=== PATIENT | female | born 1955 | race African-American/Black ===

== ENCOUNTER 2017-01-02 18:08 | Inpatient (IN) | payer OTHER ==
[~2017-01-02] VITALS: Ht 167.6 cm; Wt 90.7 kg
--- NOTE | ~2017-01-02 | HC ---
[facility] [place] [address] CONSULTATION Name: OKSANA WASHBURN Room #: 418-P ADM IN M.R.#: [id number] Admission: 01/02/17 Attend Phys: Martell Silvestre DO Discharge: Date of : 51 Report #: [id number] THIS REPORT FOR: //name// CC: [facility] physician/PCP Martell Avina DATE OF SERVICE: 01/03/2017 REFERRING PROVIDER: Martell Silvestre DO REASON FOR CONSULTATION: Diverticulitis with abscesses. HISTORY OF PRESENT ILLNESS: The patient is a 61-year-old -[place] female who presented with a 1-week history of excruciating abdominal pain that has worsened as days have gone by. The patient does have a known history of diverticulosis diagnosed at her colonoscopy last year and has failed to follow up. The patient does have severe internal and external hemorrhoids with occasional bright red blood per rectum, but has no prior history of diverticulitis. As the pain was so severe, she presented for evaluation, whereby laboratories and a CT scan of the abdomen and pelvis were obtained. The patient's labs were significant for marked leukocytosis with a white blood cell count of 30.2 and her hemoglobin was low at 8.0 consistent with her known history of anemia. Her lactic acid was normal at 1.0. CT scan of her abdomen and pelvis showed extensive descending and sigmoid diverticulitis with large extraluminal abscesses that were quite large in size, measuring on the order of 9 x 7 x 8 and 5 x 7 x 6 cm for the largest two abscesses. As the patient has acute diverticulitis with abscess formation, she has been admitted and I have been asked to evaluate from a surgical standpoint. PAST MEDICAL HISTORY: Chronic anemia, known internal and external hemorrhoids, multiple prior urinary tract infections. MEDICATIONS: None. ALLERGIES: TETRACYCLINE. SOCIAL HISTORY: The patient does not utilize illicit drugs. She is a former smoker, having quit 2 years ago from having a [id number] history and drinks alcohol occasionally and only on special occasions, but never to excess. FAMILY HISTORY: Reviewed and noncontributory. REVIEW OF SYSTEMS: GENERAL: The patient denies nocturnal fevers or chills. HEENT: No change in vision, change in hearing. [address] [address] CONSULTATION Name: OKSANA WASHBURN Room #: 418-P [facility] IN M.R.#: [id number] Admission: 01/02/17 Attend Phys: Martell Silvestre DO Discharge: Date of : 51 Report #: [id number] NECK: No swelling or difficulty swallowing. HEART: No chest pain or palpitations. LUNGS: No cough or shortness of breath. ABDOMEN: Abdominal pain, but no nausea or vomiting. GENITOURINARY: No dysuria or hematuria. ENDOCRINE: No polyuria, polydipsia. HEMATOLOGIC: No history of bleeding or easy bruising. EXTREMITIES: No history of weakness or limited range of motion. NEUROLOGIC: No history of syncope or near syncopal episodes. SKIN AND INTEGUMENT: No history of abnormal lesions or moles. PSYCHIATRIC: No history of anxiety or depression. PHYSICAL EXAMINATION: VITAL SIGNS: Temperature 98.9, pulse 78, respirations 18, blood pressure 118/55. She stands 5 feet 6 inches tall and weighs 200 pounds, giving her BMI of 32.3. GENERAL: Alert and oriented, in no acute distress. HEENT: Normocephalic, atraumatic. Pupils equal, round, reactive to light. NECK: Supple, without lymphadenopathy. Trachea midline. HEART: Regular rate and rhythm. LUNGS: Clear to auscultation bilaterally. ABDOMEN: Soft, nondistended. She is tender to palpation in both the right lower and left lower quadrants without guarding, rebound, or any other peritoneal signs or symptoms. GENITOURINARY: Normal external female genitalia. EXTREMITIES: No clubbing, cyanosis or edema. NEUROLOGIC: Cranial nerves 2-12 are grossly intact. PSYCHIATRIC: Normal mood and affect. SKIN AND INTEGUMENT: No abnormal lesions or moles. LABORATORY AND X-RAY DATA: CBC shows white blood cell count of 24.7 this morning, down from an admission level of 30.0 last night. Her hemoglobin is 8.1. Her platelets are 610,000. Her creatinine is 0.9. Her iron studies are consistent with iron deficiency anemia. Urine cultures negative. CT scan of the abdomen and pelvis as per HPI, shows extensive descending and sigmoid colon diverticulitis with extraluminal abscesses, but no free air. ASSESSMENT AND PLAN: A 61-year-old female with extensive descending colonic and sigmoid diverticulitis with extraluminal abscesses as well as iron deficiency anemia. The patient has been admitted and kept n.p.o. I recommend continuation of IV fluid rehydration as well as continuation of antibiotics as current until Dr. Paige with Infectious Disease has had a chance to evaluate and tailor antibiotics appropriately. I have asked Interventional Radiology to drain her extraluminal abscesses as they appear to be accessible per my review of her CT scan. They will send the fluid for culture to assist Dr. Paige in selecting the appropriate antibiotics moving forward. Hopefully, we can get her through this [facility] [address] [place] [address] CONSULTATION Name: OKSANA WASHBURN Room #: 418-P ADM IN M.R.#: [id number] Admission: 01/02/17 Attend Phys: Martell Silvestre DO Discharge: Date of : 51 Report #: [id number] episode with conservative measures and avoid a Michael's procedure. All the above was discussed with the patient in detail and she agrees to proceed as outlined. I sincerely appreciate this consult. I will follow closely and leave any further recommendations in the patient's chart as appropriate. <ELECTRONICALLY SIGNED> By: Sean Avina MD, FACS 01/03/17916 6 Sean Avina MD, FACS /nt
--- NOTE | ~2017-01-02 | HC ---
[facility] [place] [address] CONSULTATION Name: OKSANA WASHBURN Room #: 418-P ADM IN M.R.#: [id number] Admission: 01/02/17 Attend Phys: Chuckie Lima MD Discharge: Date of : 51 Report #: [id number] THIS REPORT FOR: //name// CC: [facility] physician/PCP Martell Avina REASON FOR CONSULTATION: I was asked to evaluate concerning diverticular abscess. HISTORY OF PRESENT ILLNESS: The patient was a 61-year-old who a week ago developed acute onset of left lower quadrant pain. She had been constipated the week before. Does have a history of diverticulosis that was documented from her previous colonoscopy. She has had low-grade fever and occasional chill. Bowel movements now have been reasonable. Pain has persisted and she presents for further evaluation. It is also noted that she has had iron deficiency anemia. Workup did reveal leukocytosis and CAT scan had changes of diverticulitis with continued abscess. She is placed on Zosyn and metronidazole, admitted to the medical surgical floor. Overnight, her pain has been reasonably controlled. She is scheduled to have a percutaneous drain placed today. ALLERGIES: TETRACYCLINE. MEDICATIONS: As noted on her MAR including Zosyn and metronidazole. PAST MEDICAL HISTORY: Urinary tract infection, anemia, appendectomy, hemorrhoids. FAMILY HISTORY: Coronary artery disease and lung cancer. SOCIAL HISTORY: Past smoker. No significant alcohol intake. Lives alone. Works a desk job. REVIEW OF SYSTEMS: No cardiopulmonary or complaints. PHYSICAL EXAMINATION: VITAL SIGNS: Afebrile, hemodynamically stable. GENERAL: Alert and cooperative and pleasant, lying in bed. Did have some discomfort when she was trying to roll over. HEENT: Unremarkable. CHEST: Clear. HEART: Regular. ABDOMEN: Moderately obese, tender in the lower abdomen, midline predominantly. There was fullness there. No rebound or guarding. EXTREMITIES: Unremarkable. NEUROLOGIC: Nonfocal. [facility] [place] [place] [address] [place] [address] CONSULTATION Name: OKSANA WASHBURN Room #: 418[facility] ..#: [id number] Admission: 01/02/17 Attend Phys: Chuckie Lima MD Discharge: Date of : 51 Report #: [id number] LABORATORY STUDIES: Hemoglobin 8.1, WBC 24.7, platelet count 610,000. Differential was 86% neutrophils, 1% band. Sodium 137, potassium 3.8, bicarbonate 26, creatinine 0.9, lactate 1, iron 15, iron saturation 10, ferritin 1259. INR 1. Urinalysis positive for protein, ketones, blood, bilirubin, few WBCs, RBCs, moderate bacteria. Blood and urine cultures pending. CT as noted with sigmoid disease and associated abscesses. Collections were in the pelvis and right of the rectum 9.6 x 7.5 x 7.7 cm. Other collections were on the left side, unclear if they communicate. IMPRESSION AND PLAN: A 61-year-old with acute diverticulitis, perforation and abscess. Hopefully, these communicate will be able to be drained percutaneously. If not, she will require a surgical intervention. At this point in time, we will continue with Bryce. We will await culture results obtained at the time of her drainage procedure. I did discuss with her various treatment options depending upon her initial response to treatment. <ELECTRONICALLY SIGNED> By: Levon Paige MD 01/04/17 0922 [id number] Levon Paige MD /nt
[2017-01-02 18:10] VITALS: BP 133/70
[2017-01-02 20:00] LABS: URINE BILIRUBIN 2+ (Negative); URINE BLOOD TRACE (Negative); URINE COLOR YELLOW; URINE GLUCOSE-RANDOM* NEGATIVE (Negative); URINE KETONES TRACE (Negative); URINE LEUKOCYTES-REFLEX TRACE (Negative); URINE PROTEIN (DIPSTICK) 2+ (Negative)
[2017-01-02 20:25] LABS: ICTOTEST (BILI CONFIRMATORY) Negative (Negative)
[2017-01-02 20:34] LABS: HEMATOCRIT 24.9 % (37.0-47.0); MCH 26.1 pg (26.0-34.0); MCHC 32.3 g/dL (28.0-37.0); PLATELET COUNT 642 thou/uL (150-400); RBC 3.08 mil/uL (4.20-5.00); RDW 17.4 % (10.5-14.5); WBC 30.2 thou/uL (4.0-11.0)
[2017-01-02 20:36] LABS: MANUAL DIFF YES
[2017-01-02 20:38] LABS: SQUAMOUS >10 Many /LPF (0-3)
[2017-01-02 20:39] LABS: CRYSTALS None Seen /LPF (None Seen); FINE GRANULAR CASTS 0-3 Few /LPF (None Seen); URINE RBC 3-10 Few /HPF (0-2); URINE WBC-REFLEX 6-15 Few /HPF (0-5)
[2017-01-02 20:43] LABS: CALCIUM 9.2 mg/dL (8.5-10.1); POTASSIUM 3.8 mmol/L (3.5-5.1)
[2017-01-02 20:49] LABS: ALBUMIN 2.7 g/dL (3.4-5.0); TOTAL BILIRUBIN 0.5 mg/dL (<0.1-1.0); TOTAL PROTEIN 7.8 g/dL (6.4-8.2)
[2017-01-02 21:06] LABS: ABSOLUTE NEUTROPHILS 26.3 thou/uL (1.4-8.2); ANISOCYTOSIS 1+; POLYCHROMASIA SLIGHT; TOTAL CELL COUNT 100
[2017-01-02 21:07] LABS: HYPOCHROMASIA SLIGHT; MICROCYTES SLIGHT
[2017-01-02 22:48] VITALS: BP 130/60
[2017-01-02 23:25] VITALS: BP 159/113
[2017-01-03] VITALS (12 sets, daily range): BP systolic 118–139; BP diastolic 52–74
[2017-01-03 04:43] LABS: HEMATOCRIT 25.5 % (37.0-47.0); HEMOGLOBIN 8.1 gm/dL (12.0-15.0); MCHC 31.6 g/dL (28.0-37.0); MCV 82.4 fL (80.0-100.0); RBC 3.1 mil/uL (4.20-5.00); RDW 17.1 % (10.5-14.5); WBC 24.7 thou/uL (4.0-11.0)
[2017-01-03 04:54] LABS: CALCIUM 8.7 mg/dL (8.5-10.1); CREATININE 0.9 mg/dL (0.6-1.0); POTASSIUM 3.8 mmol/L (3.5-5.1)
[2017-01-03 04:59] LABS: % SATURATION 10 % (20-39); IRON 15 ug/dL (50-170); TIBC 156 ug/dL (250-450); UIBC 141 ug/dL
[2017-01-03 06:45] LABS: FOLIC ACID 32.5 ng/mL (8.6-58.9)
[2017-01-03 11:02] LABS: APTT 39.5 Seconds (24.5-32.8); INR 1.1; PROTIME 10.9 Seconds (9.3-11.4)
[2017-01-04] VITALS (13 sets, daily range): BP systolic 113–159; BP diastolic 41–67
[2017-01-04 05:56] LABS: HEMATOCRIT 23.7 % (37.0-47.0); HEMOGLOBIN 7.5 gm/dL (12.0-15.0); MCH 25.8 pg (26.0-34.0); MCHC 31.6 g/dL (28.0-37.0); MCV 81.6 fL (80.0-100.0); RBC 2.9 mil/uL (4.20-5.00); RDW 17.3 % (10.5-14.5); WBC 20.9 thou/uL (4.0-11.0)
[2017-01-04 06:10] LABS: CALCIUM 8.6 mg/dL (8.5-10.1); POTASSIUM 3.4 mmol/L (3.5-5.1)
[2017-01-05 03:24] VITALS: BP 133/47
[2017-01-05 07:34] VITALS: BP 141/61
[2017-01-05 15:30] VITALS: BP 169/69
[2017-01-05 19:26] VITALS: BP 148/71
[2017-01-06 03:40] VITALS: BP 111/84
[2017-01-06 03:52] LABS: ABSOLUTE NEUTROPHILS 13.9 thou/uL (1.4-8.2); BASOPHILS 0.5 % (0.0-2.0); EOSINOPHILS 0.6 % (0.0-3.0); HEMATOCRIT 22.8 % (37.0-47.0); HEMOGLOBIN 7.4 gm/dL (12.0-15.0); LYMPHOCYTES 13.7 % (24.0-44.0); MANUAL DIFF NO; MCH 26.6 pg (26.0-34.0); MCHC 32.5 g/dL (28.0-37.0); MCV 81.9 fL (80.0-100.0); MONOCYTES 9.5 % (1.0-8.0); PLATELET COUNT 594 thou/uL (150-400); POLYS 75.7 % (36.0-66.0); RBC 2.78 mil/uL (4.20-5.00); WBC 18.3 thou/uL (4.0-11.0)
[2017-01-06 07:19] VITALS: BP 135/57
[2017-01-06 15:28] VITALS: BP 114/69
[2017-01-06 20:00] VITALS: BP 144/58
[2017-01-07 04:26] VITALS: BP 152/65
[2017-01-07 06:00] LABS: HEMATOCRIT 25.8 % (37.0-47.0); HEMOGLOBIN 8.2 gm/dL (12.0-15.0); MCHC 31.7 g/dL (28.0-37.0); PLATELET COUNT 612 thou/uL (150-400); RBC 3.15 mil/uL (4.20-5.00); RDW 17.1 % (10.5-14.5); WBC 11.6 thou/uL (4.0-11.0)
[2017-01-07 08:50] LABS: TOTAL CELL COUNT 100
[2017-01-07 08:52] LABS: MANUAL DIFF YES
[2017-01-07 08:54] LABS: ABSOLUTE NEUTROPHILS 7.7 thou/uL (1.4-8.2); ANISOCYTOSIS 1+; HYPOCHROMASIA 1+; PLATELET ESTIMATE INCREASED
[2017-01-07 09:02] LABS: CALCIUM 8.8 mg/dL (8.5-10.1); CREATININE 0.9 mg/dL (0.6-1.0); MAGNESIUM 1.9 mg/dL (1.8-2.4); POTASSIUM 3.5 mmol/L (3.5-5.1)
[2017-01-07 13:30] VITALS: BP 152/65
[2017-01-07 17:31] VITALS: BP 165/69
[2017-01-07 20:00] VITALS: BP 135/99
[2017-01-08 04:22] VITALS: BP 131/44
[2017-01-08 06:42] LABS: HEMATOCRIT 23.4 % (37.0-47.0); HEMOGLOBIN 7.6 gm/dL (12.0-15.0); MCH 26.5 pg (26.0-34.0); MCHC 32.6 g/dL (28.0-37.0); MCV 81.3 fL (80.0-100.0); RBC 2.87 mil/uL (4.20-5.00); WBC 9.4 thou/uL (4.0-11.0)
[2017-01-08 06:55] LABS: CALCIUM 8.5 mg/dL (8.5-10.1); CREATININE 0.8 mg/dL (0.6-1.0); POTASSIUM 3.2 mmol/L (3.5-5.1)
[2017-01-08 07:55] VITALS: BP 150/59
[2017-01-08] MEDS ORDERED: IBUPROFEN 800800 M1 PO (13:54)
[2017-01-08] MEDS ORDERED: PROBIOTIC1 EAC1 PO (13:54)
[2017-01-08] MEDS ORDERED: ZOFRAN ODT4 MG PO (13:54)
[2017-01-08] MEDS ORDERED: ZOSYN 4.5 GRAM4.5 GM IV (13:54)
[2017-01-08] MEDS ORDERED: PROTONIX40 M2 PO (13:54)
[2017-01-08 14:37] VITALS: BP 152/65
== END 2017-01-08 17:08 | disposition home health service (06) | DRG 872 ==
LOC: ER 18:08 → EROBS 21:56 → 4E 21:56
PROVIDERS: Emergency Medicine; Internal Medicine; Nurse Practitioner Acute Care; Surgery
PROC: 0Y903ZZ Drainage of Right Buttock, Percutaneous Approach (ICD-10-PCS; 2017-01-03)
PROC: 0W9J3ZZ Drainage of Pelvic Cavity, Percutaneous Approach (ICD-10-PCS; principal; 2017-01-04)
PROC: 02HV33Z Insertion of Infusion Device into Superior Vena Cava, Percutaneous Approach (ICD-10-PCS; 2017-01-07)
DX: A41.9 Sepsis, unspecified organism (principal); E44.1 Mild protein-calorie malnutrition; K57.20 Diverticulitis of large intestine with perforation and abscess without bleeding; D64.9 Anemia, unspecified; Z87.440 Personal history of urinary (tract) infections; Z88.1 Allergy status to other antibiotic agents; Z82.49 Family history of ischemic heart disease and other diseases of the circulatory system; Z85.118 Personal history of other malignant neoplasm of bronchus and lung; Z90.49 Acquired absence of other specified parts of digestive tract; Z87.891 Personal history of nicotine dependence; Z68.32 Body mass index [BMI] 32.0-32.9, adult
CPT/HCPCS: 10084; 27000

== ENCOUNTER → 2017-01-18 | Outpatient (CLI) | payer OTHER ==
[~2017-01-18] MED LIST: IBUPROFEN 800800 M1 PO; PROBIOTIC1 EAC1 PO; PROTONIX40 M2 PO; ZOFRAN ODT4 MG PO; ZOSYN 4.5 GRAM4.5 GM IV
== END ==
LOC: CAT 08:18
DX: N13.30 Unspecified hydronephrosis (principal); N13.4 Hydroureter; K57.91 Diverticulosis of intestine, part unspecified, without perforation or abscess with bleeding

== ENCOUNTER → 2017-01-22 | Outpatient (CLI) | payer OTHER ==
[~2017-01-22] VITALS: Ht 167.6 cm; Wt 86.2 kg
[2017-01-22 11:35] VITALS: BP 127/69
== END ==
LOC: SPEC 11:18
DX: Z43.4 Encounter for attention to other artificial openings of digestive tract (principal)